=== PATIENT | male | born 1985 | race Caucasian/White ===

== ENCOUNTER 2022-03-20 11:47 | Emergency (ER) | payer OTHER, SELFPAY ==
[2022-03-20 11:49] VITALS: BP 147/96; PULSE 63; RESP 18; TEMP 36; O2SAT 100; BMI 25.8
--- NOTE | 2022-03-20 12:10 | EX.ED.VIS.HA ---
HPI History of Present Illness Chief Complaint: Headache Informant: patient Onset/Context/Timing Onset: Weeks (1) Context: Gradual Timing: Waxes and wanes Quality -Headache: Positive for Dull Location: Left side Worsened by: Nothing Relieved by: Nothing Associated Symptoms/Injury Associated Symptoms: Positive for Nausea, Vomiting, Preceding Aura and Visual Changes; Negative for Fever, Sore Throat, Sinus Pressure, Numbness, Tingling, Photophobia or Visual Loss Narrative Narrative: Patient presents with a headache that began 1 week ago. Patient states it has been waxing and waning over that time. Patient states it is worse when he wakes up in the morning. Patient states that when he wakes up he has some visual changes in his right eye where he describes it as a whiteness. Patient states this resolves and then his headache comes on. Patient states the headache is over the left side of his head. Patient states he then started having some nausea and vomiting after this. Patient states nothing makes it worse and nothing makes it better. Patient states the pain does radiate into his neck. PFSH PFSH Medical History Depression Non-smoker Allergy/AdvReac Type Severity Reaction Status Date / Time No Known Allergies Allergy Verified 03/20/22 11:48 Surgical History no surgical history no surgical history Social History Smoking Status: Never smoker ROS ROS ED Constitutional Constitutional ED: Denies chills or fever(s) Eyes Eyes: Reports change in vision right; Denies blurry vision ENT ENT ED: Denies rhinorrhea or sore throat Cardiovascular Cardiovascular: Denies chest pain or palpitations Respiratory/Chest Respiratory/Chest: Denies cough or dyspnea Gastrointestinal Gastrointestinal: Reports diarrhea, nausea and vomiting Genitourinary Genitourinary ED: Denies dysuria or hematuria Musculoskeletal Musculoskeletal: Reports neck pain; Denies back pain Integumentary Denies abscess or rash Neurologic Neurologic: Reports headache(s); Denies weakness Allergic/Immunologic Allergic/Immunologic ED: Denies mouth swelling or urticaria EXAM Physical Exam Const Vital Signs: 03/20/22 11:49 03/20/22 12:33 Temperature 96.8 F L Temperature Source Temporal Pulse Rate 63 65 Respiratory Rate 18 18 Blood Pressure 147/96 H 128/78 H Blood Pressure Mean 113 94 Pulse Ox 100 99 Oxygen Delivery Method Room Air Room Air Positive well nourished and well developed General Appearance ED: well developed HEENT Reports moist mucous membranes Eyes PERRL and EOMs intact bilaterally Eyes Narrative: Funduscopic examination was benign. Neck supple and no JVD Resp normal respiratory effort and clear to auscultation bilaterally Cardio regular rate, regular rhythm and no murmurs GI normal to inspection, nondistended, normoactive bowel sounds and non-tender Palpation: soft Extremity normal to inspection General Extremety ED: Negative for edema or tenderness General Extremity: Negative for edema Neuro oriented x3, CN's II-XII intact bilaterally and no sensory deficits noted Sensorium / Orientation: alert Motor Exam: strength 5/5 throughout Psych mental status grossly normal Skin no rashes or lesions noted MDM MDM MDM Narrative Medical decision making narrative: Patient was given IV fluids, Reglan, and Benadryl. CT scan of the brain was obtained. There is no acute intracranial abnormality. This was interpreted by the radiologist and reviewed by myself. Patient is feeling better on reevaluation. Patient states that his headache is nearly completely resolved. Patient was advised that it sounds like migraine type headache. Patient was instructed to follow-up with his primary care physician in 5 to 7 days for reevaluation. Patient was advised he may need to see a neurologist to be definitively diagnosed with migraine headaches. Patient understands and is agreeable with the plan. All questions were answered. Radiography Diagnostic Testing: Clinical Impression(s) from Imaging Studies Brain CT 03/20/22 12:15 IMPRESSION: Normal unenhanced CT scan of the brain. Electronically Signed: Marshal Schaefer MD at 12:53 EDT , Discharge Plan Triage Chief Complaint: Headache ED Provider: Raphael Paul Dx/Rx/DC Orders Clinical Impression: Headache Instructions: ED Headache Unspecified, ED, Migraine (Classical) Primary Care Provider: Care Physician,No Primary Referrals: Raphael Casiano MD [Med Staff - [employer]] - 5-7 Days Care Physician,No Primary [Primary Care Provider] - Disposition Disposition: Home, Self Care
--- NOTE | 2022-03-20 12:15 | CT_ITS ---
STUDY: CT BRAIN WITHOUT CONTRAST REASON FOR EXAM: Male, 36 years old. One week history of left-sided headaches. Left visual changes. RADIATION DOSAGE (If Supplied By Facility): CTDIvol = ( 44.99 ) mGy, DLP = ( 796.11 ) mGycm TECHNIQUE: Transaxial CT imaging of the brain was performed without administration of intravenous contrast material. Individualized dose optimization techniques were used for this CT. COMPARISON: No relevant priors. FINDINGS: Normal soft tissue structures. Normal calvarium. Normal size ventricles and extra-axial spaces for the patient''s age. Normal white matter tracts of the cerebral hemispheres. Normal basal ganglia and thalami. Normal brainstem. Normal cerebellum. There is no intracranial hemorrhage. There are no findings of an acute ischemic infarction. Normal visualized paranasal sinuses. CT/Brain/Head without Contrast IMPRESSION: Normal unenhanced CT scan of the brain. Electronically Signed: Marshal Schaefer MD at 12:53 EDT ,
[2022-03-20] MEDS: 0.9% Normal Saline 1,000 ML 999 ML IV (12:29)
[2022-03-20] MEDS: Metoclopramide 10 MG/2 ML Vial IV (12:30)
[2022-03-20] MEDS: DiphenhydrAMINE 50 MG/ML Syringe 25 MG IV (12:30)
[2022-03-20 12:33] VITALS: BP 128/78; PULSE 65; RESP 18; O2SAT 99
[2022-03-20 13:21] VITALS: BP 128/77; PULSE 78; RESP 16; O2SAT 98
--- NOTE | 2022-03-20 17:17 | CM.ED ---
SW Note SHABBIR Note Referral Source: Case Find Referral Reason: No Primary Care Physician (PCP) SW reviewed chart and noted that patient has no PCP. SW provided patient with list of [facility] Physician List for reference. No other issues or concerns voiced at this time. SW remains available for any additional needs. Plan: Provided patient with PCP information Norma ROSALES
== END 2022-03-20 13:29 | disposition home or self-care (01) ==
PROVIDERS: Emergency Provider Emergency Medicine; Visit Provider Emergency Medicine
DX: R11.2 Nausea with vomiting, unspecified (principal); R51.9 Headache, unspecified
CPT/HCPCS: 70450; 96361; 96374; 96375; 99284; J7030

== ENCOUNTER → 2022-09-02 | Outpatient (CLI) | payer OTHER, SELFPAY ==
[2022-09-02 10:08] LABS: Absolute Lymphocyte Count 1.41 X10^3/uL (0.83-4.51); Absolute Neutrophil Count 3.5 X10^3/uL (2.0-7.7); Basophil# 0.03 X10^3/uL; Basophil% 0.5 % (0-1); Eosinophil# 0.07 X10^3/uL; Eosinophils% 1.3 % (0-5); Hematocrit 50.8 % (40-54); Lymphocyte # 1.41 X10^3/ul (0.83-4.51); Lymphocyte % 25.5 % (19-41); Mean Corp Hgb Conc 33.5 g/dL (32-36); Mean Corpuscular Hgb 29.9 pg (27.0-32.0); Mean Corpuscular Volume 89.3 fL (80-94); Mean Platelet Vol. 9.4 fl (6.2-12.0); Monocyte# 0.46 X10^3/uL; Monocyte% 8.3 % (0-10); NRBC Flagged by Analyzer 0 % (0-5); Neutrophil # 3.54 X10^3/uL (2.7-7.7); Platelet Count 247 K/mm3 (150-450); RBC Distribution Width CV 12.8 % (11.6-14.6); RBC Distribution Width SD 41.3 fl (35.1-43.9); Red Blood Count 5.69 M/mm3 (4.6-6.2); White Blood Count 5.5 K/mm3 (4.4-11.0)
[2022-09-02 10:36] LABS: Vitamin D,25 Hydroxy 27.8 ng/mL
[2022-09-02 10:46] LABS: ALB/GLOB Ratio 1.3 RATIO (0.9-2.4); AST(SGOT) 30 U/L (15-37); Alanine Aminotransfer ALT/SGPT 48 U/L (16-61); Albumin, Serum 4.4 g/dL (3.2-5.0); Alkaline Phosphatase 58 U/L (45-117); Anion Gap 6 (5-15); BUN 13 mg/dL (7-18); BUN/Creat Ratio 11.6 RATIO (10-20); Calcium,Total 9.5 mg/dL (8.5-10.1); Chloride 106 mmol/L (98-107); Cholesterol 206 mg/dL (200); Creatinine, Serum 1.12 mg/dL (0.70-1.30); EST Glomerular Filtration Rate 78 mL/min (>60); Est Glom Filt Rate - Afr Amer 94 mL/min (>60); Globulin 3.3 g/dL (2.2-4.2); Glucose 91 mg/dL (74-106); High Density Lipoprotein 43 mg/dL; Protein, Total 7.7 g/dL (6.4-8.2); Sodium Level 143 mmol/L (136-145); Triglycerides 170 mg/dL; Very Low Density Lipoprotein 34 mg/dL (5-40)
== END | disposition home or self-care (01) ==
LOC: LAB 09:00
PROVIDERS: PCP Internal Medicine; Referring Provider Internal Medicine; Visit Provider Internal Medicine
DX: Z00.00 Encounter for general adult medical examination without abnormal findings (principal); E55.9 Vitamin D deficiency, unspecified; Z13.220 Encounter for screening for lipoid disorders
CPT/HCPCS: 36415; 80053; 80061; 82306; 85025

== ENCOUNTER → 2023-09-10 | Outpatient (CLI) | payer OTHER, SELFPAY ==
[2023-09-10 10:28] LABS: Absolute Lymphocyte Count 1.63 X10^3/uL (0.83-4.51); Absolute Neutrophil Count 3.5 X10^3/uL (2.0-7.7); Basophil# 0.03 X10^3/uL; Basophil% 0.5 % (0-1); Eosinophil# 0.07 X10^3/uL; Eosinophils% 1.2 % (0-5); Hematocrit 50.6 % (40-54); Hemoglobin 17.2 g/dL (13.0-16.5); Lymphocyte # 1.63 X10^3/ul (0.83-4.51); Lymphocyte % 28.7 % (19-41); Mean Corpuscular Hgb 29.4 pg (27.0-32.0); Mean Corpuscular Volume 86.3 fL (80-94); Mean Platelet Vol. 9.5 fl (6.2-12.0); Monocyte# 0.43 X10^3/uL; Monocyte% 7.6 % (0-10); NRBC Flagged by Analyzer 0 % (0-5); Neutrophil # 3.49 X10^3/uL (2.7-7.7); Neutrophil % 61.5 % (47-70); Platelet Count 229 K/mm3 (150-450); RBC Distribution Width CV 11.7 % (11.6-14.6); RBC Distribution Width SD 37.2 fl (35.1-43.9); Red Blood Count 5.86 M/mm3 (4.6-6.2); White Blood Count 5.7 K/mm3 (4.4-11.0)
[2023-09-10 11:31] LABS: ALB/GLOB Ratio 1.4 RATIO (0.9-2.4); AST(SGOT) 34 U/L (15-37); Alanine Aminotransfer ALT/SGPT 55 U/L (16-61); Albumin, Serum 4.6 g/dL (3.2-5.0); Alkaline Phosphatase 55 U/L (45-117); Anion Gap 2 (5-15); BUN 13 mg/dL (7-18); BUN/Creat Ratio 11.9 RATIO (10-20); Calcium,Total 9.2 mg/dL (8.5-10.1); Chloride 105 mmol/L (98-107); Cholesterol 223 mg/dL (200); Creatinine, Serum 1.09 mg/dL (0.70-1.30); EST Glomerular Filtration Rate 80 mL/min (>60); Est Glom Filt Rate - Afr Amer 97 mL/min (>60); Free T3 3.8 pg/mL (2.18-3.98); Globulin 3.2 g/dL (2.2-4.2); Glucose 89 mg/dL (74-106); High Density Lipoprotein 44 mg/dL; Potassium 3.9 mmol/L (3.5-5.1); Protein, Total 7.8 g/dL (6.4-8.2); Sodium Level 138 mmol/L (136-145); T4 Free Direct 1.21 ng/dL (0.76-1.46); Thyroid Stim Hormone (TSH) 2.13 uIU/mL (0.358-3.74); Triglycerides 173 mg/dL; Very Low Density Lipoprotein 35 mg/dL (5-40)
[2023-09-11 09:43] LABS: Vitamin B12 316 pg/mL (211-911)
[2023-09-11 10:02] LABS: Bilirubin, Direct 0.36 mg/dL (0.00-0.30)
[2023-09-17 13:08] LABS: Testosterone, % Free 4.23 % (1.50-4.20); Testosterone, Free 17.26 ng/dL (5.00-21.00); Testosterone, Total 408 ng/dL (264-916)
== END | disposition home or self-care (01) ==
PROVIDERS: PCP Internal Medicine; Referring Provider Internal Medicine; Visit Provider Internal Medicine
DX: Z00.00 Encounter for general adult medical examination without abnormal findings (principal); E55.9 Vitamin D deficiency, unspecified; R53.83 Other fatigue; R17 Unspecified jaundice; Z13.220 Encounter for screening for lipoid disorders
CPT/HCPCS: 36415; 80053; 80061; 82247; 82248; 82306; 82607; 84402; 84403; 84439; 84443; 84481; 85025

== ENCOUNTER 2024-12-21 09:30 | Outpatient (RCR) | payer OTHER, SELFPAY ==
--- NOTE | 2024-12-13 13:20 | HP.PTEVAL_ITS ---
Patient's Visit Information Visit Information Visit Information: GWYN MORAN is a 39 year old M referred to Physical Therapy by Dr. Olive Sanford MD with a diagnosis of cervicalgia, LBP. Date of Evaluation: 12/13/24 Physical Therapist: Raphael Gonzalez, DPT, OCS, CSCS Visit Plan Frequency: 2x /Week Duration: 4-6 Weeks Plan: 2x/week for 3-6 weeks.. IE HEP: PPU 15x 8x/day, cerevical ret ext 15x 4x/day, postural correction with towel roll, activity and postural modifications. Minimize sitting and only with towel roll Treat with: PA mobs lumbar spine, L/S AROM ext focuseed and then general ROM progression including rotation, core strength, HS stretches Include cervical strength adn postural correction to HEP Manual STM to L UT and stretching to this posterior neck area to HEP Subjective Subjective: 3 yrs ago did a lot of cycling and L trap spasmed. Could not get back into position. Had chiropractic for tension in neck and occipitial nerve TAVAREZ. This year got R LBP and R posterior leeg pain, urgent care thought pinched nerve, That happened after starting on thee bike again. And now the shoulder hurts again. Trying to stretch and move for them. Muscle relaxers help sometimes. Dr. Sanford. recommended chiropractor. 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 Impact of running aggravates it. Employed at computer, worse as day goes on. 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 Pain R LBP: Pain Intensity (Out of 10): 2 Pain Intensity Range: 0 and 6 Objective Objective: Trasnfers chair and bed I but does not get all the way upright and very stiff in his moveement pattern. Walks I hunched forward. reflexes 2/3 bi adn tri and pateella elizabeth achilles sensation UE and LE WNL to gross light touch. strength UE 4+ without myotomal, LE 3+ core and hip rotators, 4 in knee adn ankles. lumbar AROM max limited ext and painful, min flexion and SB no pain. posture is flat lordosis and kyphotic thoracic spine. Does not extend lumbar area in sitting or standing, stays hunched over and forward. feels weird to extend. - SLR, - slump but tension in LB and legs with these. - cervical compression test. HS flexibility max deficit at -40 90/90 cervical aROM ext 55 , rotation 55 no increased pain, SB symmetrical Tender to touch L UT and scalenes minimally, feels patent Balance/Special Test Scores Oswestry Low Back Score: 14 Goals Goal 1:: Move transfer chair with looseness and no evidence of pain Goal Time Frame: 4-6 Weeks Goal 2:: Walk without gait deviations Goal Time Frame: 4-6 Weeks Goal 3:: Pain in LB and neeck 75% betteer at 1/10 at worst and manageable Goal Time Frame: 4-6 Weeks Goal 4:: I appropriate HEP to limit future problems Goal Time Frame: 4-6 Weeks Goal 5:: oswestry score 3 or better Goal Time Frame: 4-6 Weeks Goal 6:: return to gym ex without hesitation Goal Time Frame: 4-6 Weeks Rehabilitation Potential Physical Therapy Diagnosis: limited neck adn LB ROM, postural deficits, weakness leading to chronic spinal pain. Rehabilitation Potential: Fair Anticipated Interventions Patient/Client Instruction: Educate patient on: Condition and Plan of Care For the Purpose of:: To decrease pain, To increase ROM, To improve nutrient delivery to tissue, To improve muscle performance and motor function, To increase tolerance to activity/condition/position, To improve ability of physical actions for home/community/work/leisure and To improve gait and locomotor functions Therapeutic Exercise to Include: Strength training, Postural training, Flexibilty training, Passive ROM, Active ROM, Dynamic Lumbar Stabilization and Altagracia Exercises For the Purpose of:: To decrease pain, To increase ROM, To improve nutrient delivery to tissue, To improve muscle performance and motor function, To incre ase tolerance to activity/condition/position, To improve ability of physical actions for home/community/work/leisure and To improve gait and locomotor functions Manual Therapy Techniques to Include: Mobilization, Passive ROM and Soft tissue mobilization For the Purpose of:: To decrease pain and To increase ROM Text: Thank you for the opportunity to evaluate your patient. For Medicare and Medicare HMO plans, please review the plan of care and approve it. It will need to be FAXED BACK to us at [phone] for Medicare purposes. For Medicare only, by signing this I certify the plan of care. Please let me know if there are questions or concerns regarding this plan of care. Physician Signature: Date:
--- NOTE | 2025-01-27 15:50 | HP.PTDCNRP_ITS ---
Patient Information Patient Information: GWYN MORAN was seen in my office for initial evaluation on 12/13/24. The following Plan of Care was established for this patient: POC Established Initial Frequency: 2x /Week Initial Duration: 4-6 Weeks Anticipated Interventions Patient/Client Instruction: Educate patient on: Condition and Plan of Care For the Purpose of:: To decrease pain, To increase ROM, To improve nutrient delivery to tissue, To improve muscle performance and motor function, To increase tolerance to activity/condition/position, To improve ability of ph ysical actions for home/community/work/leisure and To improve gait and locomotor functions Therapeutic Exercise to Include: Strength training, Postural training, Flexibilty training, Passive ROM, Active ROM, Dynamic Lumbar Stabilization and Altagracia Exercises For the Purpose of:: To decrease pain, To increase ROM, To improve nutrient delivery to tissue, To improve muscle performance and motor function, To increase tolerance to activity/condition/position, To improve ability of physical actions for home/community/work/leisure and To improve gait and locomotor functions Manual Therapy Techniques to Include: Mobilization, Passive ROM and Soft tissue mobilization For the Purpose of:: To decrease pain and To increase ROM Last Seen Last Seen: This patient was last seen in our office 12/21/24. Pertinent comments regarding their Physical therapy will appear below: Pt seen 2 visits of POC and did not attend any further visits. I will discontinue due to nonattendance. At this point I will be discontinuing this patient from physical therapy. I would be happy to see this patient again in the future if found appropriate by the physician. Thank you! Raphael Gonzalez, DPT, OCS, CSCS Balance/Gait/Functional tests Balance/Special Test Scores Oswestry Low Back Score: 14
== END 2024-12-21 19:00 | disposition home or self-care (01) ==
LOC: PT 09:30
PROVIDERS: PCP Internal Medicine; Referring Provider Internal Medicine; Visit Provider Internal Medicine
DX: R29.898 Other symptoms and signs involving the musculoskeletal system (principal); M54.50 Low back pain, unspecified; M54.6 Pain in thoracic spine; M54.2 Cervicalgia
CPT/HCPCS: 97110; 97140; 97162